=== PATIENT | female | born 1950 | race Two or more races ===

== ENCOUNTER 2016-06-06 11:09 | Inpatient (IN) | payer OTHER, MEDICAID ==
[2016-06-06] VITALS (48 sets, daily range): BP systolic 112–152; BP diastolic 48–95
[~2016-06-06] VITALS: Ht 149.9 cm; Wt 45.8 kg
[2016-06-06] MEDS ORDERED: SODIUM CHLORIDE 0.9% 500 ML IVB ONE (11:24)
[2016-06-06 11:53] LABS: Basophils # (auto) 0.1 uL; Basophils % (auto) 1.3 % (0.0-2.0); DEFINITIVE VIEW TRANSMISSION; Eosinophils # (auto) 0 uL; Eosinophils % (auto) 0.3 % (0.0-7.0); Hematocrit 14.4 % (36.0-46.0); Mean Corpuscular Hemoglobin 15.9 pg (28.0-32.0); Mean Corpuscular Hgb Conc. 27.9 g/dL (32.0-36.0); Mean Corpuscular Volume 57.1 fL (80.0-100.0); Mean Platelet Volume 8.1 fL (7.4-10.4); Monocytes # (auto) 0.6 uL; Monocytes % (auto) 7.2 % (0.0-12.0); Neutrophils # (auto) 7.1 uL; Neutrophils % (auto) 80.2 % (37.0-80.0); Platelet Count (auto) 342 10^3/uL (140-450); White Blood Cell 8.8 10^3/uL (4.4-10.8)
[2016-06-06 12:08] LABS: Red Cell Distribution Width 21.3 % (11.6-16.0)
[2016-06-06 12:14] LABS: Ovalocytes FEW; Platelet Estimate Adequate; Tear Drop Cells FEW
[2016-06-06 12:15] LABS: Albumin 4.2 g/dL (3.4-5.0); Bilirubin, Total 0.6 mg/dL (0.2-1.0); Calcium 9.1 mg/dL (8.5-10.1); Potassium 3.7 mmol/L (3.5-5.1); Total Protein 7.4 g/dL (6.4-8.2)
[2016-06-06 12:16] LABS: Anisocytosis Moderate; Hypochromia Marked; Microcytosis Marked
[2016-06-06 12:18] LABS: Magnesium 2.4 mg/dL (1.6-2.6)
[2016-06-06 12:23] LABS: Partial Thromboplastin Time 21.4 sec (22.64-33.71); Prothrombin Time 10.8 sec (9.37-12.3)
[2016-06-06] MEDS ORDERED: PANTOPRAZOLE SODIUM 40 MG/10 ML VIAL IV ONE (13:15)
[2016-06-06] MEDS ORDERED: NITROGLYCERIN 0.4 MG SL TAB SL PRN (13:15)
[2016-06-06] MEDS ORDERED: PROCHLORPERAZINE EDISYLATE 5 MG/ML 2ML VIAL IV PRN (13:15)
[2016-06-06] MEDS ORDERED: MORPHINE SULF INJ 2 MG/ML SYRINGE 1ML IV PRN ×2 (13:15)
[2016-06-06] MEDS ORDERED: HYDROcodone-ACET 5/325MG TAB PO PRN (13:15)
[2016-06-06] MEDS ORDERED: LACTULOSE 20Gm/30ML SOLN PO PRN (13:15)
[2016-06-06] MEDS ORDERED: TEMAZEPAM 15 MG CAP PO PRN (13:15)
[2016-06-06] MEDS ORDERED: ACETAMINOPHEN 500 MG TAB PO PRN (13:15)
[2016-06-06] MEDS ORDERED: LORazepam 0.5 MG TAB PO PRN (13:15)
[2016-06-06] MEDS ORDERED: DEXTROSE (50%) 50ML SYRG IV PRN (13:15)
[2016-06-06] MEDS: SODIUM CHLORIDE 0.9% 1,000 ML IV SCH ×2 (13:31→22:30)
[2016-06-06] MEDS ORDERED: GOLYTELY 4L KIT PO ONE (15:00)
[2016-06-06] MEDS ORDERED: OMEP20CA5 PO (15:52)
[2016-06-06] MEDS: ACCU-CHEK COMFORT CURVE STRIP VI SCH (18:00)
[2016-06-07] VITALS (31 sets, daily range): BP systolic 117–144; BP diastolic 60–78
[2016-06-07 00:23] LABS: Hematocrit 35.2 % (36.0-46.0); Hemoglobin 10.8 g/dL (12.2-16.2)
[2016-06-07] MEDS: ACCU-CHEK COMFORT CURVE STRIP VI SCH ×3 (01:23→12:00)
[2016-06-07 06:07] LABS: Basophils # (auto) 0.1 uL; Basophils % (auto) 0.9 % (0.0-2.0); DEFINITIVE VIEW TRANSMISSION; Eosinophils # (auto) 0.1 uL; Eosinophils % (auto) 1.6 % (0.0-7.0); Hematocrit 32.8 % (36.0-46.0); Hemoglobin 10.4 g/dL (12.2-16.2); Lymphocytes # (auto) 1.1 uL; Lymphocytes % (auto) 14.4 % (10.0-50.0); Mean Corpuscular Hemoglobin 24.5 pg (28.0-32.0); Mean Corpuscular Hgb Conc. 31.7 g/dL (32.0-36.0); Mean Corpuscular Volume 77.3 fL (80.0-100.0); Mean Platelet Volume 8.7 fL (7.4-10.4); Monocytes # (auto) 0.7 uL; Neutrophils # (auto) 5.4 uL; Neutrophils % (auto) 74.1 % (37.0-80.0); Platelet Count (auto) 230 10^3/uL (140-450); SUSPECT VIEW TRANSMISSION; White Blood Cell 7.4 10^3/uL (4.4-10.8)
[2016-06-07 06:25] LABS: Cholesterol 125 mg/dL (< 200); HDL Cholesterol 37 mg/dL (40-59); LDL Cholesterol 86 mg/dL (< 100); Triglycerides 97 mg/dL (< 150)
[2016-06-07 06:29] LABS: Red Cell Distribution Width 30.2 % (11.6-16.0)
[2016-06-07] MEDS: SODIUM CHLORIDE 0.9% 1,000 ML IV SCH (06:30)
[2016-06-07 06:52] LABS: Platelet Estimate Adequate
[2016-06-07 06:53] LABS: Anisocytosis Moderate; Hypochromia Moderate; Microcytosis Slight
[2016-06-07 06:54] LABS: Hypersegmented Neutrophils Present; Ovalocytes FEW; Tear Drop Cells FEW
[2016-06-07] MEDS ORDERED: fentaNYL CITRATE 100 MCG/2 ML VL ONE (08:28)
[2016-06-07] MEDS ORDERED: MIDAZOLAM HCL 5 MG/ML-1ML VIAL ONE (08:28)
[2016-06-07] MEDS ORDERED: diphenhdrAMINE HCL 50 MG/1 ML VL ONE (08:28)
[2016-06-07] MEDS ORDERED: SODIUM CHLORIDE LOCK 10 ML ONE (08:28)
[2016-06-07] MEDS ORDERED: LIDOCAINE VISCOUS 2% 15ML UD ONE (08:28)
[2016-06-07 10:39] LABS: Urine Bilirubin Negative (Negative); Urine Blood Negative /uL (Negative); Urine Color Yellow (Yellow); Urine Glucose Normal (Normal); Urine Ketone Negative (Negative); Urine Mucus FEW (None Seen); Urine Nitrite Negative (Negative); Urine RBC 1 /hpf (0 - 4); Urine Squamous Epithelial Cell FEW /hpf (<5); Urine Urobilinogen Normal (Negative)
[2016-06-07] MEDS: PANTOPRAZOLE 40 MG TAB PO SCH (12:43)
[2016-06-07 13:11] LABS: Hematocrit 34.8 % (36.0-46.0); Hemoglobin 10.9 g/dL (12.2-16.2)
[2016-06-07 19:28] LABS: Hematocrit 33.5 % (36.0-46.0); Hemoglobin 10.6 g/dL (12.2-16.2)
[2016-06-08 05:33] VITALS: BP 138/60
[2016-06-08 08:00] VITALS: BP 115/70
[2016-06-08] MEDS ORDERED: FER325T PO (08:34)
[2016-06-08] MEDS ORDERED: PANT40T PO (08:34)
[2016-06-08] MEDS: PANTOPRAZOLE 40 MG TAB PO SCH (10:00)
[2016-06-08 12:00] VITALS: BP 121/72
[2016-06-08 21:06] LABS: Sjogren's Anti-SS-A Antibody <0.2 AI (0.0-0.9)
== END 2016-06-08 13:15 | disposition home or self-care (01) | DRG 812 ==
LOC: ER 11:09 → TELE 11:10 → ICU WEST 14:40 → TELE-WESTW 06-07 17:33
PROVIDERS: ADMIT Internal Medicine; ATTEND Internal Medicine
PROC: 30233N1 Transfusion of Nonautologous Red Blood Cells into Peripheral Vein, Percutaneous Approach (ICD-10-PCS; principal; 2016-06-06)
PROC: 0DJD8ZZ Inspection of Lower Intestinal Tract, Via Natural or Artificial Opening Endoscopic (ICD-10-PCS; 2016-06-07)
PROC: 0DJ08ZZ Inspection of Upper Intestinal Tract, Via Natural or Artificial Opening Endoscopic (ICD-10-PCS; 2016-06-07 11:15)
DX: D50.9 Iron deficiency anemia, unspecified (principal); K92.1 Melena; K64.8 Other hemorrhoids; K21.9 Gastro-esophageal reflux disease without esophagitis; F17.210 Nicotine dependence, cigarettes, uncomplicated; K44.9 Diaphragmatic hernia without obstruction or gangrene; Z83.3 Family history of diabetes mellitus; Z82.49 Family history of ischemic heart disease and other diseases of the circulatory system
CPT/HCPCS: 36415; 36430; 43235; 45378; 71010; 74176; 80053; 80061; 80074; 81001; 82150; 82270; 82378; 82962; 83036; 83516; 83690; 83735; 84443; 84481; 84484; 85014; 85018; 85025; 85045; 85610; 85652; 85730; 86141; 86225; 86235; 86703; 86850; 86900; 86901; 86920; 87081; 93005; 96361; 96374; C9113; G0434; J2250

== ENCOUNTER → 2016-06-06 | Outpatient (CLI) | payer OTHER ==
[~2016-06-06] MED LIST: OMEP20CA5 PO
[2016-06-06 09:42] LABS: Basophils # (auto) 0.2 uL; Basophils % (auto) 2.4 % (0.0-2.0); DEFINITIVE VIEW TRANSMISSION; Eosinophils # (auto) 0.2 uL; Eosinophils % (auto) 2.4 % (0.0-7.0); Hematocrit 15.1 % (36.0-46.0); Lymphocytes # (auto) 1.2 uL; Mean Corpuscular Hemoglobin 15.9 pg (28.0-32.0); Mean Corpuscular Hgb Conc. 27.4 g/dL (32.0-36.0); Mean Corpuscular Volume 58.2 fL (80.0-100.0); Mean Platelet Volume 8.1 fL (7.4-10.4); Monocytes # (auto) 0.5 uL; Monocytes % (auto) 8.2 % (0.0-12.0); Neutrophils # (auto) 4.3 uL; Platelet Count (auto) 400 10^3/uL (140-450); White Blood Cell 6.3 10^3/uL (4.4-10.8)
[2016-06-06 10:20] LABS: Red Cell Distribution Width 20.8 % (11.6-16.0)
[2016-06-06 10:23] LABS: Albumin 4.2 g/dL (3.4-5.0); BUN/Creatinine Ratio 10.1; Bilirubin, Total 0.5 mg/dL (0.2-1.0); Calcium 8.9 mg/dL (8.5-10.1); Potassium 3.8 mmol/L (3.5-5.1); Total Protein 7.5 g/dL (6.4-8.2)
[2016-06-06 10:26] LABS: Hemoglobin 4.1 g/dL (12.2-16.2)
[2016-06-06 10:43] LABS: Urine Bilirubin Negative (Negative); Urine Blood Negative /uL (Negative); Urine Color Yellow (Yellow); Urine Glucose Normal (Normal); Urine Hyaline Cast MANY /lpf (0 - 2); Urine Ketone Negative (Negative); Urine Mucus FEW (None Seen); Urine Nitrite Negative (Negative); Urine RBC 3 /hpf (0 - 4); Urine Squamous Epithelial Cell FEW /hpf (<5); Urine Urobilinogen Normal (Negative); Urine WBC Clumps PRESENT /hpf (None Seen)
[2016-06-06 12:26] LABS: Microcytosis Marked; Platelet Estimate Adequate
[2016-06-06 12:27] LABS: Anisocytosis Moderate; Hypochromia Marked; Ovalocytes FEW; Tear Drop Cells FEW
== END | disposition home or self-care (01) ==
LOC: LAB 08:59
PROVIDERS: ATTEND Internal Medicine
DX: Z00.00 Encounter for general adult medical examination without abnormal findings (principal); I10 Essential (primary) hypertension; E78.2 Mixed hyperlipidemia; E55.9 Vitamin D deficiency, unspecified
CPT/HCPCS: 36415; 80053; 80061; 81001; 82306; 84439; 84443; 85025; 86803

== ENCOUNTER → 2016-06-22 | Outpatient (CLI) | payer OTHER, MEDICAID ==
[~2016-06-22] MED LIST changes: +FER325T PO; -OMEP20CA5 PO; +PANT40T PO
[2016-06-22 16:58] LABS: Basophils # (auto) 0.2 uL; Basophils % (auto) 2.1 % (0.0-2.0); DEFINITIVE VIEW TRANSMISSION; Eosinophils # (auto) 0.3 uL; Eosinophils % (auto) 3.1 % (0.0-7.0); Hematocrit 40.2 % (36.0-46.0); Hemoglobin 12.7 g/dL (12.2-16.2); Lymphocytes # (auto) 2.8 uL; Lymphocytes % (auto) 29.8 % (10.0-50.0); Mean Corpuscular Hemoglobin 25.3 pg (28.0-32.0); Mean Corpuscular Hgb Conc. 31.6 g/dL (32.0-36.0); Mean Platelet Volume 9.4 fL (7.4-10.4); Monocytes # (auto) 0.8 uL; Monocytes % (auto) 8.4 % (0.0-12.0); Neutrophils # (auto) 5.3 uL; Neutrophils % (auto) 56.6 % (37.0-80.0); Platelet Count (auto) 417 10^3/uL (140-450); SUSPECT VIEW TRANSMISSION; White Blood Cell 9.3 10^3/uL (4.4-10.8)
[2016-06-22 17:04] LABS: Red Cell Distribution Width 30.6 % (11.6-16.0)
[2016-06-22 17:20] LABS: Anisocytosis Slight; Giant Platelets Few; Hypochromia Slight; Ovalocytes FEW; Platelet Estimate Adequate
[2016-06-22 17:27] LABS: Temperature: 22.9 C (20.0-25.0)
== END | disposition home or self-care (01) ==
LOC: LAB 16:30
PROVIDERS: ATTEND Internal Medicine
DX: D64.9 Anemia, unspecified (principal)
CPT/HCPCS: 36415; 82607; 82728; 82746; 83540; 83550; 85025

== ENCOUNTER → 2016-07-06 | Outpatient (CLI) | payer OTHER, MEDICAID ==
[2016-07-06 16:25] LABS: Basophils # (auto) 0.1 uL; Basophils % (auto) 0.6 % (0.0-2.0); DEFINITIVE VIEW TRANSMISSION; Eosinophils # (auto) 0.1 uL; Eosinophils % (auto) 1.2 % (0.0-7.0); Hematocrit 37.8 % (36.0-46.0); Hemoglobin 12.6 g/dL (12.2-16.2); Lymphocytes # (auto) 2.4 uL; Lymphocytes % (auto) 26.2 % (10.0-50.0); Mean Corpuscular Hemoglobin 26.8 pg (28.0-32.0); Mean Corpuscular Hgb Conc. 33.4 g/dL (32.0-36.0); Mean Corpuscular Volume 80.4 fL (80.0-100.0); Mean Platelet Volume 8.9 fL (7.4-10.4); Monocytes # (auto) 0.7 uL; Monocytes % (auto) 7.3 % (0.0-12.0); Neutrophils % (auto) 64.7 % (37.0-80.0); Platelet Count (auto) 292 10^3/uL (140-450); SUSPECT VIEW TRANSMISSION; White Blood Cell 9.3 10^3/uL (4.4-10.8)
[2016-07-06 16:42] LABS: Red Cell Distribution Width 29.6 % (11.6-16.0)
[2016-07-06 17:04] LABS: Anisocytosis Slight; Hypochromia Slight; Platelet Estimate Adequate
== END | disposition home or self-care (01) ==
LOC: LAB 16:02
PROVIDERS: ATTEND Internal Medicine
DX: D64.9 Anemia, unspecified (principal)
CPT/HCPCS: 36415; 85025

== ENCOUNTER → 2016-10-09 | Outpatient (CLI) | payer OTHER, MEDICAID ==
[2016-10-09 16:49] LABS: Basophils # (auto) 0.1 uL; CONDITION Y; Eosinophils # (auto) 0.1 uL; Eosinophils % (auto) 1.6 % (0.0-7.0); Hematocrit 41.9 % (36.0-46.0); Hemoglobin 14.1 g/dL (12.2-16.2); Lymphocytes # (auto) 2.2 uL; Lymphocytes % (auto) 27.5 % (10.0-50.0); Mean Corpuscular Hemoglobin 31.6 pg (28.0-32.0); Mean Corpuscular Hgb Conc. 33.7 g/dL (32.0-36.0); Mean Corpuscular Volume 93.7 fL (80.0-100.0); Mean Platelet Volume 8.2 fL (7.4-10.4); Monocytes # (auto) 0.8 uL; Monocytes % (auto) 9.8 % (0.0-12.0); Neutrophils # (auto) 4.9 uL; Neutrophils % (auto) 60.1 % (37.0-80.0); Platelet Count (auto) 313 10^3/uL (140-450); Red Cell Distribution Width 13.3 % (11.6-16.0); White Blood Cell 8.1 10^3/uL (4.4-10.8)
== END | disposition home or self-care (01) ==
LOC: LAB 16:32
PROVIDERS: ATTEND Internal Medicine
DX: D64.9 Anemia, unspecified (principal)
CPT/HCPCS: 36415; 85025

== ENCOUNTER → 2017-06-24 | Outpatient (CLI) | payer OTHER, MEDICAID ==
[2017-06-24 11:02] LABS: Basophils # (auto) 0.1 uL; Basophils % (auto) 1.1 % (0.0-2.0); Eosinophils # (auto) 0.2 uL; Hematocrit 35.9 % (36.0-46.0); Hemoglobin 11.5 g/dL (12.2-16.2); Lymphocytes # (auto) 1.9 uL; Monocytes # (auto) 0.5 uL
[2017-06-24 11:04] LABS: Eosinophils % (auto) 2.2 % (0.0-7.0); Lymphocytes % (auto) 27.7 % (10.0-50.0); Mean Corpuscular Hemoglobin 25.6 pg (28.0-32.0); Mean Corpuscular Hgb Conc. 31.9 g/dL (32.0-36.0); Mean Corpuscular Volume 80.2 fL (80.0-100.0); Monocytes % (auto) 7.4 % (0.0-12.0); Neutrophils # (auto) 4.2 uL; Neutrophils % (auto) 61.6 % (37.0-80.0); Platelet Count (auto) 295 10^3/uL (140-450); Red Blood Cells 4.48 10^6/uL (4.0-5.20); Red Cell Distribution Width 16.5 % (11.8-14.3); White Blood Cell 6.9 10^3/uL (4.4-10.8)
[2017-06-24 11:19] LABS: Albumin 3.8 g/dL (3.4-5.0); BUN/Creatinine Ratio 15.7; Bilirubin, Total 0.3 mg/dL (0.2-1.0); Calcium 9.1 mg/dL (8.5-10.1); Potassium 3.8 mmol/L (3.5-5.1); Total Protein 7.6 g/dL (6.4-8.2)
[2017-06-24 11:22] LABS: Free T4 (Free Thyroxine) 1.21 ng/dL (0.89-1.76)
== END | disposition home or self-care (01) ==
LOC: LAB 10:12
PROVIDERS: ATTEND Internal Medicine
DX: K21.9 Gastro-esophageal reflux disease without esophagitis (principal); D64.9 Anemia, unspecified; R73.01 Impaired fasting glucose; K44.9 Diaphragmatic hernia without obstruction or gangrene; F17.210 Nicotine dependence, cigarettes, uncomplicated; I10 Essential (primary) hypertension
CPT/HCPCS: 36415; 80053; 80061; 82306; 82607; 83036; 83615; 84439; 84443; 85025; 85045; 85652

== ENCOUNTER → 2017-07-12 | Outpatient (CLI) | payer OTHER, MEDICAID | END | disposition home or self-care (01) | LOC: LAB 14:56 | PROVIDERS: ATTEND Internal Medicine | DX: D64.9 Anemia, unspecified (principal); I10 Essential (primary) hypertension; K21.9 Gastro-esophageal reflux disease without esophagitis; F17.210 Nicotine dependence, cigarettes, uncomplicated | CPT/HCPCS: 82270 ==

== ENCOUNTER → 2017-11-08 | Outpatient (CLI) | payer OTHER ==
[2017-11-08 14:25] LABS: Basophils # (auto) 0.1 uL; Basophils % (auto) 1.4 % (0.0-2.0); Eosinophils # (auto) 0.2 uL; Eosinophils % (auto) 2.9 % (0.0-7.0); Hematocrit 38.6 % (36.0-46.0); Hemoglobin 12.6 g/dL (12.2-16.2); Lymphocytes # (auto) 1.4 uL; Lymphocytes % (auto) 22.2 % (10.0-50.0); Mean Corpuscular Hemoglobin 28.1 pg (28.0-32.0); Mean Corpuscular Hgb Conc. 32.7 g/dL (32.0-36.0); Mean Corpuscular Volume 85.8 fL (80.0-100.0); Monocytes # (auto) 0.6 uL; Monocytes % (auto) 9.1 % (0.0-12.0); Neutrophils # (auto) 4.1 uL; Neutrophils % (auto) 64.4 % (37.0-80.0); Nucleated Red Blood Cells % 0.1 %; Platelet Count (auto) 306 10^3/uL (140-450); Red Blood Cells 4.49 10^6/uL (4.0-5.20); White Blood Cell 6.4 10^3/uL (4.4-10.8)
[2017-11-08 14:33] LABS: Red Cell Distribution Width 21.9 % (11.8-14.3)
[2017-11-08 15:23] LABS: % Iron Saturation 5.3 % (15-50); Albumin 4.3 g/dL (3.4-5.0); BUN/Creatinine Ratio 13.7; Bilirubin, Total 0.4 mg/dL (0.2-1.0); Calcium 9.1 mg/dL (8.5-10.1); Potassium 3.5 mmol/L (3.5-5.1); Total Protein 8.1 g/dL (6.4-8.2)
== END | disposition home or self-care (01) ==
LOC: LAB 14:07
PROVIDERS: ATTEND Internal Medicine
DX: D50.0 Iron deficiency anemia secondary to blood loss (chronic) (principal)
CPT/HCPCS: 36415; 80053; 83540; 83550; 83615; 85025

== ENCOUNTER → 2018-03-28 | Outpatient (CLI) | payer OTHER ==
[2018-03-28 09:33] LABS: Basophils # (auto) 0.1 uL; Basophils % (auto) 1.6 % (0.0-2.0); Eosinophils # (auto) 0.2 uL; Eosinophils % (auto) 3.1 % (0.0-7.0); Hematocrit 40.4 % (36.0-46.0); Hemoglobin 13.6 g/dL (12.2-16.2); Lymphocytes # (auto) 1.7 uL; Lymphocytes % (auto) 26.7 % (10.0-50.0); Mean Corpuscular Hemoglobin 30.4 pg (28.0-32.0); Mean Corpuscular Hgb Conc. 33.7 g/dL (32.0-36.0); Mean Corpuscular Volume 90.3 fL (80.0-100.0); Monocytes # (auto) 0.6 uL; Monocytes % (auto) 9.6 % (0.0-12.0); Neutrophils # (auto) 3.7 uL; Platelet Count (auto) 240 10^3/uL (140-450); Red Blood Cells 4.47 10^6/uL (4.0-5.20); Red Cell Distribution Width 14.3 % (11.8-14.3); White Blood Cell 6.3 10^3/uL (4.4-10.8)
[2018-03-28 09:52] LABS: Albumin 3.9 g/dL (3.4-5.0); Potassium 3.3 mmol/L (3.5-5.1)
[2018-03-28 09:58] LABS: Bilirubin, Total 0.5 mg/dL (0.2-1.0); Calcium 8.8 mg/dL (8.5-10.1); Total Protein 7.2 g/dL (6.4-8.2)
[2018-03-28 10:00] LABS: % Iron Saturation 13.4 % (15-50)
[2018-03-28 10:04] LABS: Free T4 (Free Thyroxine) 1.33 ng/dL (0.89-1.76)
== END | disposition home or self-care (01) ==
LOC: LAB 09:06
PROVIDERS: ATTEND Internal Medicine
DX: E03.9 Hypothyroidism, unspecified (principal); E78.5 Hyperlipidemia, unspecified
CPT/HCPCS: 36415; 80053; 80061; 82306; 82607; 83540; 83550; 83615; 84439; 84443; 85025

== ENCOUNTER 2021-06-02 18:14 | Inpatient (IN) | payer MEDICAID, OTHER ==
[~2021-06-02] VITALS: Ht 147.3 cm; Wt 45.0 kg
[2021-06-02] VITALS (7 sets, daily range): BP systolic 134–148; BP diastolic 6–77
[2021-06-02 19:21] LABS: Hematocrit 14.7 % (36.0-46.0); Mean Corpuscular Hemoglobin 15.5 pg (28.0-32.0); Mean Corpuscular Hgb Conc. 27.3 g/dL (32.0-36.0); Mean Corpuscular Volume 56.7 fL (80.0-100.0); Red Blood Cells 2.59 10^6/uL (4.0-5.20); White Blood Cell 4.8 10^3/uL (4.4-10.8)
[2021-06-02 19:23] LABS: Red Cell Distribution Width 21.1 % (11.8-14.3)
[2021-06-02 19:28] LABS: Blast Cells 0; Eosinophils % (manual) 0 (0-7); Metamyelocytes % 0; Myelocytes % 0; Promyelocytes % 0
[2021-06-02 19:38] LABS: Albumin 3.6 g/dL (3.4-5.0); Calcium 8.7 mg/dL (8.5-10.1); Potassium 3.7 mmol/L (3.5-5.1)
[2021-06-02 19:43] LABS: BUN/Creatinine Ratio 12.1; Bilirubin, Total 0.4 mg/dL (0.2-1.0)
[2021-06-02 20:07] LABS: Band Neutrophils % (manual) 1; Basophils % (manual) 2 (0.0-2.0); Lymphocytes % (manual) 11 (10.0-50.0); Monocytes % (manual) 4 (0-12); Reactive Lymphocytes 2
[2021-06-02] MEDS ORDERED: ONDANSETRON HCL 4 MG/2 ML VIAL IV PRN (21:15)
[2021-06-02 21:58] LABS: % Iron Saturation 1.7 % (15-50)
[2021-06-02] MEDS: METOPROLOL SUCCINATE XL 50 MG TAB PO SCH (22:06)
[2021-06-02] MEDS: PANTOPRAZOLE 40 MG TAB PO SCH (22:06)
[2021-06-03] VITALS (7 sets, daily range): BP systolic 105–148; BP diastolic 66–74
[2021-06-03] MEDS ORDERED: METO25TA93 PO (00:25)
[2021-06-03 05:17] LABS: Eosinophils # (auto) 0 10 ^3/uL (0-0.8); Lymphocytes # (auto) 1.7 10 ^3/uL (0.4-5.4); Monocytes # (auto) 0.5 10 ^3/uL (0-1.3); Nucleated Red Blood Cells % 0.2 %; Red Blood Cells 3.43 10^6/uL (4.0-5.20)
[2021-06-03 05:20] LABS: Basophils # (auto) 0.1 10 ^3/uL (0-0.2); Basophils % (auto) 2.1 % (0.0-2.0); Eosinophils % (auto) 0.8 % (0.0-7.0); Hematocrit 23.9 % (36.0-46.0); Hemoglobin 7.6 g/dL (12.2-16.2); Lymphocytes % (auto) 30.3 % (10.0-50.0); Mean Corpuscular Hgb Conc. 31.7 g/dL (32.0-36.0); Mean Corpuscular Volume 69.5 fL (80.0-100.0); Monocytes % (auto) 9.6 % (0.0-12.0); Neutrophils # (auto) 3.2 10 ^3/uL (1.6-8.6); Neutrophils % (auto) 57.2 % (37.0-80.0); Red Cell Distribution Width 30.7 % (11.8-14.3); White Blood Cell 5.6 10^3/uL (4.4-10.8)
[2021-06-03 05:40] LABS: Potassium 3.4 mmol/L (3.5-5.1)
[2021-06-03 05:44] LABS: Albumin 3.2 g/dL (3.4-5.0); BUN/Creatinine Ratio 12.3; Calcium 8.5 mg/dL (8.5-10.1)
[2021-06-03 05:58] LABS: Bilirubin, Total 1.2 mg/dL (0.2-1.0)
[2021-06-03] MEDS: SUCRALFATE 1 GM TAB PO SCH ×3 (11:30→21:15)
[2021-06-04 05:00] VITALS: BP 131/71
[2021-06-04] MEDS: SUCRALFATE 1 GM TAB PO SCH ×4 (06:08→20:59)
[2021-06-04] MEDS: METOPROLOL SUCCINATE XL 50 MG TAB PO SCH (08:57)
[2021-06-04] MEDS: PANTOPRAZOLE 40 MG TAB PO SCH (08:57)
[2021-06-04 09:00] VITALS: BP 143/67
[2021-06-04 11:30] LABS: Basophils # (auto) 0.1 10 ^3/uL (0-0.2); Eosinophils # (auto) 0.1 10 ^3/uL (0-0.8); Hemoglobin 8.4 g/dL (12.2-16.2); Lymphocytes # (auto) 0.9 10 ^3/uL (0.4-5.4); Mean Corpuscular Volume 68.5 fL (80.0-100.0); Monocytes # (auto) 0.5 10 ^3/uL (0-1.3); Neutrophils # (auto) 5.2 10 ^3/uL (1.6-8.6); Nucleated Red Blood Cells % 0.1 %; White Blood Cell 6.8 10^3/uL (4.4-10.8)
[2021-06-04 11:33] LABS: Basophils % (auto) 1.5 % (0.0-2.0); Eosinophils % (auto) 1.1 % (0.0-7.0); Lymphocytes % (auto) 13.4 % (10.0-50.0); Mean Corpuscular Hemoglobin 21.5 pg (28.0-32.0); Mean Corpuscular Hgb Conc. 31.3 g/dL (32.0-36.0); Monocytes % (auto) 7.1 % (0.0-12.0); Neutrophils % (auto) 76.9 % (37.0-80.0); Red Blood Cells 3.94 10^6/uL (4.0-5.20)
[2021-06-04 11:34] LABS: Red Cell Distribution Width 31.1 % (11.8-14.3)
[2021-06-04 17:00] VITALS: BP 145/68
[2021-06-04 22:00] VITALS: BP 157/68
[2021-06-05 05:00] VITALS: BP 146/69
[2021-06-05 05:14] LABS: Basophils # (auto) 0.2 10 ^3/uL (0-0.2); Eosinophils # (auto) 0.2 10 ^3/uL (0-0.8); Hemoglobin 7.5 g/dL (12.2-16.2); Lymphocytes # (auto) 2.1 10 ^3/uL (0.4-5.4); Monocytes # (auto) 0.6 10 ^3/uL (0-1.3)
[2021-06-05 05:16] LABS: Basophils % (auto) 2.9 % (0.0-2.0); Eosinophils % (auto) 3.3 % (0.0-7.0); Hematocrit 24.1 % (36.0-46.0); Lymphocytes % (auto) 28.4 % (10.0-50.0); Mean Corpuscular Hemoglobin 21.5 pg (28.0-32.0); Mean Corpuscular Volume 69.4 fL (80.0-100.0); Monocytes % (auto) 8.4 % (0.0-12.0); Neutrophils # (auto) 4.3 10 ^3/uL (1.6-8.6); Nucleated Red Blood Cells % 0.1 %; Red Blood Cells 3.47 10^6/uL (4.0-5.20); White Blood Cell 7.5 10^3/uL (4.4-10.8)
[2021-06-05 06:15] LABS: Red Cell Distribution Width 31.7 % (11.8-14.3)
[2021-06-05] MEDS: SUCRALFATE 1 GM TAB PO SCH ×2 (06:30→12:49)
[2021-06-05 09:00] VITALS: BP 119/60
[2021-06-05] MEDS ORDERED: FERROUS SULFATE 325mg EC TAB PO SCH (10:00)
[2021-06-05] MEDS: METOPROLOL SUCCINATE XL 50 MG TAB PO SCH (10:35)
[2021-06-05] MEDS: PANTOPRAZOLE 40 MG TAB PO SCH (10:35)
[2021-06-05 12:34] VITALS: BP 122/68
== END 2021-06-05 13:51 | disposition home or self-care (01) | DRG 812 ==
LOC: ER 18:14 → OVERFLOW 21:04 → WEST WING 23:00
PROVIDERS: ADMIT Nurse Practitioner; ATTEND Family Medicine
PROC: 30233N1 Transfusion of Nonautologous Red Blood Cells into Peripheral Vein, Percutaneous Approach (ICD-10-PCS; principal; 2021-06-02)
DX: D50.9 Iron deficiency anemia, unspecified (principal); I10 Essential (primary) hypertension; Z20.822 Contact with and (suspected) exposure to COVID-19; Z82.49 Family history of ischemic heart disease and other diseases of the circulatory system; Z83.3 Family history of diabetes mellitus
CPT/HCPCS: 36415; 36430; 74176; 80053; 82270; 83540; 83550; 84484; 85007; 85025; 85027; 86850; 86900; 86901; 86920; 93005; 99291; G0378

== ENCOUNTER → 2021-09-19 | Outpatient (CLI) | payer OTHER ==
[~2021-09-19] MED LIST changes: +METO25TA93 PO
[2021-09-19 10:36] LABS: Basophils # (auto) 0.1 10 ^3/uL (0-0.2); Basophils % (auto) 1.6 % (0.0-2.0); Eosinophils # (auto) 0.1 10 ^3/uL (0-0.8); Eosinophils % (auto) 1.4 % (0.0-7.0); Hematocrit 39.8 % (36.0-46.0); Hemoglobin 13.2 g/dL (12.2-16.2); Lymphocytes # (auto) 1.2 10 ^3/uL (0.4-5.4); Lymphocytes % (auto) 17.8 % (10.0-50.0); Mean Corpuscular Hemoglobin 30.3 pg (28.0-32.0); Mean Corpuscular Hgb Conc. 33.1 g/dL (32.0-36.0); Mean Corpuscular Volume 91.7 fL (80.0-100.0); Monocytes # (auto) 0.6 10 ^3/uL (0-1.3); Monocytes % (auto) 8.8 % (0.0-12.0); Neutrophils # (auto) 4.9 10 ^3/uL (1.6-8.6); Neutrophils % (auto) 70.4 % (37.0-80.0); Nucleated Red Blood Cells % 0.1 %; Red Blood Cells 4.34 10^6/uL (4.0-5.20); Red Cell Distribution Width 14.6 % (11.8-14.3)
== END | disposition home or self-care (01) ==
LOC: LAB 10:24
PROVIDERS: ATTEND Internal Medicine
DX: D64.9 Anemia, unspecified (principal); E03.9 Hypothyroidism, unspecified
CPT/HCPCS: 36415; 84443; 85025